=== PATIENT | male | born 1975 | race Two or more races ===

== ENCOUNTER 2017-02-03 22:52 | Emergency (ER) | payer MEDICAID ==
[~2017-02-03] VITALS: Ht 172.7 cm; Wt 75.7 kg
--- NOTE | 2017-02-03 23:27 | NUR ---
pt ambulatory w/ steady gait for c/o lower abd pain, nausea no vomiting or diarrhea. pt states he tried sticking his finger in his mouth to try to force himself to vomit. AOx4, afebrile w/ resp even & unlabored, on continuous monitoring. Urine obtained & sent to lab. Dr. James at bedside for further eval.
--- NOTE | 2017-02-03 23:36 | NUR ---
Sent to CT.
[2017-02-03] MEDS ORDERED: ONDANSETRON HCL/PF 4 MG/2 ML VIAL ONE (23:58)
[2017-02-03] MEDS ORDERED: IV SET PRIMARY 1 EA INFUS.SET MC ONE (23:58)
[2017-02-03] MEDS ORDERED: IV NS 0.9% 1,000 ML ONE (23:58)
[2017-02-03] MEDS ORDERED: MORPHINE SULFATE INJ 4 MG/ML DISP.SYRIN ONE (23:58)
--- NOTE | 2017-02-03 23:59 | NUR ---
Return fr CT. IVHL started, labs drawn & sent.
[2017-02-04] MEDS ORDERED: MORPHINE SULFATE INJ 2 MG/ML DISP.SYRIN IV ONE
[2017-02-04] MEDS ORDERED: IV NS 0.9% 1,000 ML BAG IV ONE
[2017-02-04] MEDS ORDERED: ONDANSETRON HCL/PF 4 MG/2 ML VIAL IVP ONE
--- NOTE | 2017-02-04 00:04 | NUR ---
medicated as ordered.
[2017-02-04 00:22] LABS: BASOPHILS # (AUTO) 0.1 /CMM (0.0-0.2); BASOPHILS % (AUTO) 0.9 % (0.0-2.0); EOSINOPHILS # (AUTO) 0.2 /CMM (0.0-0.7); EOSINOPHILS % (AUTO) 2.9 % (0.0-6.0); HEMATOCRIT 40 % (39-51); HEMOGLOBIN 13.3 g/dL (13.5-17.5); LYMPHOCYTES # (AUTO) 2.2 /CMM (0.8-4.8); LYMPHOCYTES % (AUTO) 28.5 % (20.0-44.0); MEAN CORPUSCULAR HEMOGLOBIN 29 PG (26.0-33.0); MEAN CORPUSCULAR HGB CONC 34 g/dl (31.0-36.0); MEAN CORPUSCULAR VOLUME 86 fL (80-96); MONOCYTES # (AUTO) 0.6 /CMM (0.1-1.30); MONOCYTES % (AUTO) 8.5 % (2.0-12.0); NEUTROPHILS # (AUTO) 4.5 /CMM (1.8-8.9); NEUTROPHILS % (AUTO) 59.2 % (43.0-81.0); PLATELET COUNT (AUTO) 183 /CMM (150-450); RDW COEFFICIENT OF VARIATION 13.6 (11.5-15.0); WHITE BLOOD COUNT (AUTO) 7.6 K/uL (4.3-11.0)
[2017-02-04 00:30] LABS: APPEARANCE,URINE CLEAR (CLEAR); BILIRUBIN,URINE NEGATIVE (NEGATIVE); BLOOD, URINE NEGATIVE Ery/uL (NEGATIVE); COLOR,URINE YELLOW (YELLOW); KETONES,URINE NEGATIVE (NEGATIVE); LEUKOCYTE ESTERASE ,URINE NEGATIVE (NEGATIVE); NITRITE, URINE NEGATIVE (NEGATIVE); PROTEIN,URINE NEGATIVE (NEGATIVE); UGLUCOSE NEGATIVE (NEGATIVE)
[2017-02-04 00:33] LABS: BACTERIA,URINE None seen /HPF (None Seen); RBC,URINE 0-2 /HPF (0-2); SQUAMOUS EPITHELIAL CELL,UR Rare /HPF (None Seen); WBC,URINE 0-2 /HPF (0-3)
[2017-02-04 00:39] LABS: PROTHROMBIN TIME 10.7 SECS (9.5-12.7)
[2017-02-04 00:53] LABS: CALCIUM, SERUM 8.8 mg/dL (8.5-10.1); CARBON DIOXIDE 27 mmol/L (21-32); CHLORIDE 106 mmol/L (98-107); CREATININE 1.1 mg/dL (0.6-1.3); GLUCOSE 103 mg/dL (74-106); SODIUM SERUM 142 mmol/L (136-145); TROPONIN I < 0.017 ng/mL (0.00-0.056); UREA NITROGEN, BLOOD 21 mg/dL (7-18)
[2017-02-04 00:58] LABS: ALANINE AMINOTRANSFERASE 39 U/L (12-78); ALBUMIN 3.8 g/dL (3.4-5.0); ALKALINE PHOSPHATASE 54 U/L (46-116); ASPARTATE AMINOTRANSFERASE 17 U/L (15-37); BILIRUBIN,DIRECT 0.1 mg/dL (0.0-0.2); BILIRUBIN,TOTAL 0.3 mg/dL (0.2-1.0); LIPASE 106 U/L (73-393); TOTAL PROTEIN, SERUM 7.6 g/dL (6.4-8.2)
[2017-02-04 01:07] VITALS: BP 116/74
--- NOTE | 2017-02-04 01:07 | NUR ---
IV removed. Catheter intact and site benign. Pressure and 4x4 applied to site. No bleeding noted.Patient discharged to home in stable condition. Written and verbal after care instructions given. Patient verbalizes understanding of instruction.
== END 2017-02-04 01:08 | disposition home or self-care (01) ==
LOC: ER 22:57
DX: R10.84 Generalized abdominal pain (principal)
CPT/HCPCS: 36415; 74176; 80048; 80076; 81001; 83690; 84484; 85025; 85730; 93005; 96361; 96374; 96375; 99285; A4606 ×2; J2270; J2405; J7030; Z7610 ×2; 81000-TC